=== PATIENT | male | born 1945 | race Caucasian/White ===

== ENCOUNTER 2017-01-15 03:34 | Emergency (ER) | payer MEDICARE, OTHER ==
[~2017-01-15] VITALS: Ht 172.7 cm; Wt 100.4 kg
[~2017-01-15 03:34] MED LIST: ASPI-515 PO; ASPI100P; ATOR40TA78 PO; BENA20TA2; DOXA4TAB; ESZO3TAB28; NAPR500T3 PO; PANT20TA3 PO; ROSU20TA; VENL75CA
[2017-01-15 03:35] VITALS: BP 156/90
== END 2017-01-15 04:12 | disposition home or self-care (01) ==
LOC: ED 04:00
DX: B00.2 Herpesviral gingivostomatitis and pharyngotonsillitis (principal); I10 Essential (primary) hypertension; K21.9 Gastro-esophageal reflux disease without esophagitis; E78.00 Pure hypercholesterolemia, unspecified
CPT/HCPCS: 99283

== ENCOUNTER → 2020-04-27 | Outpatient (CLI) | payer MEDICARE, OTHER ==
[~2020-04-27] MED LIST changes: -BENA20TA2; +BENA20TA54; +NAPR-685 PO; -NAPR500T3 PO; +OMNIPAQUE 350 MG/ML, 100ML BOTTLE ONE; -PANT20TA3 PO; +PANT20TA4 PO; -ROSU20TA; +ROSU20TA2
== END | disposition home or self-care (01) ==
LOC: CFH 09:49
PROVIDERS: ATTEND Family Medicine
DX: K80.20 Calculus of gallbladder without cholecystitis without obstruction (principal); K40.20 Bilateral inguinal hernia, without obstruction or gangrene, not specified as recurrent; R19.00 Intra-abdominal and pelvic swelling, mass and lump, unspecified site
CPT/HCPCS: 74177; 82565; Q9967